=== PATIENT | female | born 1985 | race African-American/Black ===

== ENCOUNTER 2024-01-26 08:18 | Outpatient (RCR) | payer OTHER, SELFPAY ==
[2024-01-26] VITALS (11 sets, daily range): BP systolic 94–141; BP diastolic 52–80
[2024-01-26 09:00] LABS: % Basophils 0.5 % (0-2); % Eosinophils 1.4 % (0-6); % Immature Granulocytes 0.2 % (0-0.5); % Lymphocytes 15.5 % (20.5-51.1); % Monocytes 12.1 % (1.7-9.3); % Neutrophils 70.3 % (42.2-75.2); Absolute Eosinophils 0.1 10^3/uL (0-0.7); Absolute Lymphocytes 1.3 10^3/uL (1.2-3.4); Absolute Monocytes 1.1 10^3/uL (0.1-0.6); Absolute Neutrophils 6.1 10^3/uL (1.4-6.5); Hematocrit 37.7 % (37.0-47.0); Hemoglobin 12.8 g/dL (12.0-16.0); Mean Corpuscular Hgb 25.3 pg (27.0-31.0); Mean Corpuscular Volume 74.5 fL (81.0-99.0); Mean Platelet Volume 10.7 fL (7.4-10.4); Platelet Count 300 10^3/uL (130-400); Red Blood Cell Count 5.06 10^6/uL (4.20-5.40); Red Cell Dist. Width 16.6 % (11.5-14.5); White Blood Cell Count 8.7 10^3/uL (4.8-10.8)
[2024-01-26] MEDS: NSS 500 IV (09:12)
[2024-01-26] MEDS: BENADRYL 51 MG IV (09:12)
[2024-01-26] MEDS: TYLENOL 650 MG PO (09:13)
[2024-01-26] MEDS: PEPCID 52 MG IV (09:42)
[2024-01-26] MEDS: OCREVUS 520 MG IV (10:12)
== END 2024-01-27 11:08 | disposition home or self-care (01) ==
LOC: OID 08:18
PROVIDERS: ATTENDING PHYSICIAN Student in an Organized Health Care Education/Training Program; FAMILY PHYSICIAN Family Medicine
DX: G35 Multiple sclerosis (principal)
CPT/HCPCS: 36415; 85025; 96361; 96367; 96413; 96415; J2350

== ENCOUNTER 2024-07-27 08:36 | Outpatient (RCR) | payer OTHER, SELFPAY ==
[2024-07-27] VITALS (11 sets, daily range): BP systolic 113–135; BP diastolic 48–71
[2024-07-27 08:59] LABS: % Basophils 0.4 % (0-2); % Eosinophils 1.5 % (0-6); % Immature Granulocytes 0.3 % (0-0.5); % Lymphocytes 18.1 % (20.5-51.1); % Monocytes 11.5 % (1.7-9.3); % Neutrophils 68.2 % (42.2-75.2); Absolute Eosinophils 0.2 10^3/uL (0-0.7); Absolute Lymphocytes 2.1 10^3/uL (1.2-3.4); Absolute Monocytes 1.3 10^3/uL (0.1-0.6); Absolute Neutrophils 7.8 10^3/uL (1.4-6.5); Hematocrit 37.3 % (37.0-47.0); Hemoglobin 12.8 g/dL (12.0-16.0); Mean Corp Hgb Conc. 34.3 g/dL (33.0-37.0); Mean Corpuscular Hgb 24.9 pg (27.0-31.0); Mean Corpuscular Volume 72.6 fL (81.0-99.0); Mean Platelet Volume 11.2 fL (7.4-10.4); Platelet Count 405 10^3/uL (130-400); Red Blood Cell Count 5.14 10^6/uL (4.20-5.40); Red Cell Dist. Width 15.6 % (11.5-14.5); White Blood Cell Count 11.4 10^3/uL (4.8-10.8)
[2024-07-27] MEDS: PEPCID 52 MG IV (09:24)
[2024-07-27] MEDS: TYLENOL 650 MG PO (09:25)
[2024-07-27] MEDS: BENADRYL 51 MG IV (09:47)
[2024-07-27] MEDS: OCREVUS 520 MG IV (10:19)
[2024-07-27] MEDS: NSS 500 IV (10:20)
== END 2024-07-28 08:20 | disposition home or self-care (01) ==
LOC: OID 08:36
PROVIDERS: ATTENDING PHYSICIAN Student in an Organized Health Care Education/Training Program; FAMILY PHYSICIAN Family Medicine
DX: G35 Multiple sclerosis (principal)
CPT/HCPCS: 85025; 96365; 96366; 96367; J2350

== ENCOUNTER 2025-01-25 08:38 | Outpatient (RCR) | payer OTHER, SELFPAY ==
[2025-01-25] VITALS (11 sets, daily range): BP systolic 111–172; BP diastolic 53–95
[2025-01-25 08:59] LABS: % Basophils 0.3 % (0-2); % Eosinophils 1.2 % (0-6); % Immature Granulocytes 0.2 % (0-0.5); % Lymphocytes 19.3 % (20.5-51.1); % Monocytes 11.5 % (1.7-9.3); % Neutrophils 67.5 % (42.2-75.2); Absolute Eosinophils 0.1 10^3/uL (0-0.7); Absolute Lymphocytes 1.7 10^3/uL (1.2-3.4); Hematocrit 35.1 % (37.0-47.0); Hemoglobin 11.8 g/dL (12.0-16.0); Mean Corp Hgb Conc. 33.6 g/dL (33.0-37.0); Mean Corpuscular Volume 71.5 fL (81.0-99.0); Mean Platelet Volume 10.9 fL (7.4-10.4); Platelet Count 297 10^3/uL (130-400); Red Blood Cell Count 4.91 10^6/uL (4.20-5.40); Red Cell Dist. Width 16.5 % (11.5-14.5)
[2025-01-25] MEDS: TYLENOL 650 MG PO (09:25)
[2025-01-25] MEDS: PEPCID 52 MG IV (09:26)
[2025-01-25] MEDS: BENADRYL 51 MG IV (09:53)
[2025-01-25] MEDS: NSS 500 IV (10:22)
[2025-01-25] MEDS: OCREVUS 520 MG IV (10:23)
== END 2025-01-26 11:25 | disposition home or self-care (01) ==
LOC: OID 08:38
PROVIDERS: ATTENDING PHYSICIAN Student in an Organized Health Care Education/Training Program; FAMILY PHYSICIAN Family Medicine
DX: G35 Multiple sclerosis (principal)
CPT/HCPCS: 85025; 96361; 96367; 96413; 96415; J2350

== ENCOUNTER 2025-07-27 08:25 | Outpatient (RCR) | payer OTHER, SELFPAY ==
[2025-07-27] VITALS (10 sets, daily range): BP systolic 100–148; BP diastolic 44–75
[2025-07-27] MEDS: BENADRYL 51 MG IV (09:03)
[2025-07-27] MEDS: TYLENOL 650 MG PO (09:04)
[2025-07-27] MEDS: NSS 500 IV (09:05)
[2025-07-27 09:23] LABS: Hematocrit 36.7 % (37.0-47.0); Hemoglobin 12.5 g/dL (12.0-16.0); Mean Corp Hgb Conc. 34.1 g/dL (33.0-37.0); Mean Corpuscular Volume 73.1 fL (81.0-99.0); Nucleated Red Blood Cells % 0 %; Platelet Count 314 10^3/uL (130-400); Red Cell Dist. Width 15.8 % (11.5-14.5)
[2025-07-27] MEDS: PEPCID 52 MG IV (09:25)
[2025-07-27] MEDS: OCREVUS 520 MG IV (10:04)
== END 2025-07-30 11:22 | disposition home or self-care (01) ==
LOC: OID 08:25
PROVIDERS: ATTENDING PHYSICIAN Student in an Organized Health Care Education/Training Program; FAMILY PHYSICIAN Family Medicine
DX: G35.B0 Primary progressive multiple sclerosis, unspecified (principal)
CPT/HCPCS: 85025; 96361; 96365; 96366; 96367; J2350